=== PATIENT | male | born 1945 | race Caucasian/White ===

== ENCOUNTER 2018-05-01 08:14 | Day surgery (SDC) | payer MEDICARE ==
[2018-04-27 12:30] VITALS: BMI 28.7
[~2018-05-01 08:14] MED LIST: LACTATED RINGERS 1,000 ML IV SCH; LIDOCAINE 1% 20 ML VIAL (10MG/ML) FOR IV START INTRADERMA PRN
[2018-05-01 08:40] VITALS: RESP 18; TEMP 97.4
[2018-05-01] MEDS ORDERED: PROPOFOL 10 MG/ML 20 ML VIAL IV ONE (09:46)
[2018-05-01] MEDS ORDERED: fentaNYL (PF) 50 MCG/ML 2 ML AMP ONE (09:46)
[2018-05-01] MEDS ORDERED: LIDOCAINE 1% INJ 10MG/ML (20 ML MDV) ONE (09:46)
--- NOTE | 2018-05-01 10:21 | P.PCN ---
Date of Procedure: 05/01/18 Procedure(s) Performed: Procedure: Total colonoscopy. Preoperative diagnosis: Positive cologuard test and history of polyps. Postoperative diagnosis: #1 Sigmoid diverticulosis with no evidence of acute diverticulitis or strictures. #2 Low-grade internal hemorrhoids without bleeding at the time of the exam. #3 No polyps or tumors. Preparation: HalfLytely prep. Sedation: Was provided by anesthesia. Brief clinical history: The patient is a 72-year-old male with history of colon polyps. His last exam was in May 2014 where a tubular adenoma was removed from his rectum. The patient was recently found to have a positive cologuard test and is now referred for this evaluation to rule out neoplasia or other pathology. Procedure: With the patient on his left lateral decubitus position and after informed consent and adequate sedation, the perianal area was inspected and it did not show any fissures or fistulas. There were no masses felt on digital rectal examination. The Olympus CFH 190L video colonoscope was then inserted in the rectum in the usual fashion and advanced to the cecum. There were several diverticular orifices seen scattered in the sigmoid but I saw no evidence of acute diverticulitis or strictures. No polyps or tumors were seen. I retroflexed the endoscope in the rectum before the endoscope was withdrawn. Low-grade internal hemorrhoids were noted with no evidence of bleeding. The patient tolerated the procedure well. Plan: The patient was reassured. Discussed dietary measures and local care for hemorrhoids. He will follow-up with you as planned and I recommended repeat exam in 5 years.
[2018-05-01 10:33] VITALS: BP 127/70; PULSE 60
== END 2018-05-01 10:45 | disposition home or self-care (01) ==
LOC: ORWHC2ENDO 08:14
DX: Z12.11 Encounter for screening for malignant neoplasm of colon (principal); K57.30 Diverticulosis of large intestine without perforation or abscess without bleeding; K64.8 Other hemorrhoids; N40.0 Benign prostatic hyperplasia without lower urinary tract symptoms; J44.9 Chronic obstructive pulmonary disease, unspecified; Z86.010 Personal history of colon polyps; Z79.899 Other long term (current) drug therapy
CPT/HCPCS: J2001; J3010; J2704; G0105; 45378

== ENCOUNTER 2023-03-15 13:07 | Inpatient (IN) | payer MEDICARE ==
--- NOTE | 2023-03-15 13:20 | ED ---
General Adult HPI - General Source: patient, RN notes reviewed Mode of arrival: ambulatory Limitations: no limitations <Priyanka Watters - Last Filed: 03/15/23 13:18> <Richard Singer - Last Filed: 03/15/23 15:52> - General Chief complaint: Recheck/Abnormal Lab/Rx Stated complaint: rapid pulse Time Seen by Provider: 03/15/23 13:15 - History of Present Illness Initial comments: 77-year-old male presents to the emergency department for chief complaint of elevated heart rate. He states that he walked the mall today then when he went home he felt his heart racing a bit. He states that he took his heart rate at that time and it was elevated around 140. Denies chest pain, shortness of breath. He follows with Dr. Celestin. No history of afib. (Priyanka Watters) This is a 77-year-old male presents emergency department because when he got up this morning felt like his heart rate was fast they took his pulse and it was passively decided come to the emergency department. Patient states he has no history of a fast heart rate in the past. Patient denies any chest pain. Patient denies any shortness of breath or difficulty breathing. Patient denies any fever chills or cough. Patient denies any recent nausea vomiting diarrhea or abdominal pain. Patient states he hasn't been more fatigued lately or had any weakness. Patient denies lightheadedness or dizziness. (Richard Singer) - Related Data Home Medications Medication Instructions Recorded Confirmed Mometasone Furoate [Nasonex] 1 - 2 spray EA NOSTRIL DAILY 05/12/14 05/01/18 Montelukast [Singulair] 10 mg PO DAILY 05/12/14 05/01/18 Tamsulosin [Flomax] 0.4 mg PO DAILY 04/27/18 04/27/18 Allergies Allergy/AdvReac Type Severity Reaction Status Date / Time No Known Allergies Allergy Verified 03/15/23 13:16 Review of Systems ROS Other: All systems not noted in ROS Statement are negative. <Priyanka Watters - Last Filed: 03/15/23 13:18> ROS Other: All systems not noted in ROS Statement are negative. <Richard Singer - Last Filed: 03/15/23 15:52> ROS Statement: Those systems with pertinent positive or pertinent negative responses have been documented in the HPI. Past Medical History Past Medical History: Prostate Disorder Additional Past Medical History / Comment(s): positive cologard, hx. colon polyps History of Any Multi-Drug Resistant Organisms: None Reported Past Surgical History: Tonsillectomy Additional Past Surgical History / Comment(s): Cyst removed on right side of face (2007?), colonoscopies Past Anesthesia/Blood Transfusion Reactions: No Reported Reaction Past Psychological History: No Psychological Hx Reported Smoking Status: Never smoker Past Alcohol Use History: Rare Past Drug Use History: None Reported - Past Family History Mother Family Medical History: No Reported History <Priyanka Watters - Last Filed: 03/15/23 13:18> General Exam Limitations: no limitations <Priyanka Watters - Last Filed: 03/15/23 13:18> <Richard Singer - Last Filed: 03/15/23 15:52> - General Exam Comments Initial Comments: Visual Physical Exam Vital signs reviewed General: Well-appearing, nontoxic, no acute distress. Head: Normocephalic, atraumatic Eyes: PERRLA, EOMI ENT: Airway patent Chest: Nonlabored breathing Skin: No visual rash, normal skin tone Neuro: Alert and oriented 3 Musculoskeletal: No gross abnormalities (Priyanka Watters) GENERAL: Patient is well-developed and well-nourished. Patient is nontoxic and well- hydrated and is in no acute distress. ENT: Neck is soft and supple. No significant lymphadenopathy is noted. Oropharynx is clear. Moist mucous membranes. Neck has full range of motion without eliciting any pain. EYES: The sclera were anicteric and conjunctiva were pink and moist. Extraocular movements were intact and pupils were equal round and reactive to light. Eyelids were unremarkable. PULMONARY: Unlabored respirations. Good breath sounds bilaterally. No audible rales rho nchi or wheezing was noted. CARDIOVASCULAR: Patient is tachycardic at 140 beats a minute ABDOMEN: Soft and nontender with normal bowel sounds. SKIN: Skin is clear with no lesions or rashes and otherwise unremarkable. NEUROLOGIC: Patient is alert and oriented x3. Cranial nerves II through XII are grossly intact. Motor and sensory are also intact. Normal speech, volume and content. Symmetrical smile. MUSCULOSKELETAL: Normal extremities with adequate strength and full range of motion. No lower extremity swelling or edema. No calf tenderness. LYMPHATICS: No significant lymphadenopathy is noted PSYCHIATRIC: Normal psychiatric evaluation. (Richard Singer) Course Vital Signs 03/15/23 03/15/23 13:14 15:39 Temperature 98.5 F Pulse Rate 142 H 140 H Respiratory 18 18 Rate Blood Pressure 170/98 129/94 O2 Sat by Pulse 96 96 Oximetry Medical Decision Making <Priyanka Watters - Last Filed: 03/15/23 13:18> - Lab Data Result diagrams: 03/15/23 13:58 03/15/23 13:58 <Richard Singer - Last Filed: 03/15/23 15:52> - Medical Decision Making Quick note preformed by Priyanka Watters PA-C (Priyanka Watters) EKG is interpreted by myself. EKG shows atrial flutter at 140 beats a minute QRS is 91 Q-T intervals 218 QTC is 300. Patient's EKG shows no ST segment elevation or depression. Was pt. sent in by a medical professional or institution ([facility], QUALITY TECHNICIAN, urgent care, hospital, or longterm...) When possible be specific @ -No Did you speak to anyone other than the patient for history (EMS, parent, family, police, friend...)? What history was obtained from this source @ -No Did you review nursing and triage notes (agree or disagree)? Why? @ -I reviewed and agree with nursing and triage notes Were old charts reviewed (outside hosp., previous admission, EMS record, old EKG, old radiological studies, urgent care reports/EKG's, longterm records)? Report findings @ -No old charts were reviewed Differential Diagnosis (chest pain, altered mental status, abdominal pain women, abdominal pain men, vaginal bleeding, weakness, fever, dyspnea, syncope, headache, dizziness, GI bleed, back pain, seizure, CVA, palpatations, mental health, musculoskeletal)? @ -Differential Palpitations Ventricular arrhythmias, atrial arrhythmias, myocardial infarction, anemia, thyrotoxicosis, electrolyte imbalance, hypokalemia, pulmonary embolism, pulmonary disease, drugs, alcohol, anxiety, stress.... This is not meant to be an all-inclusive list. EKG interpreted by me (3pts min.). @ -As above X-rays interpreted by me (1pt min.). @ -Chest x-ray shows no acute abnormality CT interpreted by me (1pt min.). @ -None done U/S interpreted by me (1pt. min.). @ -None done What testing was considered but not performed or refused? (CT, X-rays, U/S, labs)? Why? @ -None What meds were considered but not given or refused? Why? @ -None Did you discuss the management of the patient with other professionals (professionals i.e. , PA, QUALITY TECHNICIAN, lab, RT, psych nurse, hospice social worker, asic verification engineer, teacher, air force senior officer, behavioral health case manager)? Give summary @ -With [facility] physician's they agreed to admit the patient admitted the patient I wrote admitting orders Was smoking cessation discussed for >3mins.? @ -No Was critical care preformed (if so, how long)? @ -35 minutes Were there social determinants of health that impacted care today? How? (Homelessness, low income, unemployed, alcoholism, drug addiction, transportation, low edu. Level, literacy, decrease access to med. care, snf, rehab)? @ -No Was there de-escalation of care discussed even if they declined (Discuss DNR or withdrawal of care, Hospice)? DNR status @ -No What co-morbidities impacted this encounter? (DM, HTN, Smoking, COPD, CAD, Cancer, CVA, ARF, Chemo, Hep., AIDS, mental health diagnosis, sleep apnea, morbid obesity)? @ -None Was patient admitted / discharged? Hospital course, mention meds given and route, prescriptions, significant lab abnormalities, going to OR and other pertinent info. @ -I spoke with [facility] physician's patient will be admitted to the hospital. Cardiology will be consulted. Patient's EKG indicated atrial flutter. Patient was placed on Cardizem and then heparin. Undiagnosed new problem with uncertain prognosis? @ -No Drug Therapy requiring intensive monitoring for toxicity (Heparin, Nitro, Insulin, Cardizem)? @ -No Were any procedures done? @ -No Diagnosis/symptom? @ -Atrial flutter with rapid ventricular response Acute, or Chronic, or Acute on Chronic? @ -Acute Uncomplicated (without systemic symptoms) or Complicated (systemic symptoms)? @ -Complicated Side effects of treatment? @ -No Exacerbation, Progression, or Severe Exacerbation? @ -No Poses a threat to life or bodily function? How? (Chest pain, [place], [place], pneumonia, PE, COPD, DKA, ARF, appy, cholecystitis, CVA, Diverticulitis, Homicidal, Suicidal, threat to staff... and all critical care pts) @ -Yes this could lead blood clots and possibly stroke (Richard Singer) - Lab Data Lab Results 03/15/23 03/15/23 03/15/23 Range/Units 13:58 13:58 13:58 WBC 9.7 (3.8-10.6) k/uL RBC 5.52 (4.30-5.90) m/uL Hgb 16.3 (13.0-17.5) gm/dL Hct 48.9 (39.0-53.0) % MCV 88.5 (80.0-100.0) fL MCH 29.5 (25.0-35.0) pg MCHC 33.3 (31.0-37.0) g/dL RDW 13.5 (11.5-15.5) % Plt Count 180 (150-450) k/uL MPV 7.9 Neutrophils % 74 % Lymphocytes % 16 % Monocytes % 6 % Eosinophils % 2 % Basophils % 1 % Neutrophils # 7.2 (1.3-7.7) k/uL Lymphocytes # 1.5 (1.0-4.8) k/uL Monocytes # 0.5 (0-1.0) k/uL Eosinophils # 0.2 (0-0.7) k/uL Basophils # 0.1 (0-0.2) k/uL PT 11.3 (10.0-12.5) sec INR 1.0 (<1.2) APTT 22.9 (22.0-30.0) sec Sodium 137 (137-145) mmol/L Potassium 4.1 (3.5-5.1) mmol/L Chloride 104 (98-107) mmol/L Carbon Dioxide 21 L (22-30) mmol/L Anion Gap 12 mmol/L BUN 19 (9-20) mg/dL Creatinine 0.90 (0.66-1.25) mg/dL Est GFR (CKD-EPI)AfAm >90 (>60 ml/min/1.73 sqM) Est GFR (CKD-EPI)NonAf 81 (>60 ml/min/1.73 sqM) Glucose 297 H (74-99) mg/dL Calcium 9.2 (8.4-10.2) mg/dL Magnesium 2.0 (1.6-2.3) mg/dL Total Bilirubin 0.6 (0.2-1.3) mg/dL AST 38 (17-59) U/L ALT 36 (4-49) U/L Alkaline Phosphatase 71 (38-126) U/L Troponin I (0.000-0.034) ng/mL Total Protein 7.4 (6.3-8.2) g/dL Albumin 4.3 (3.5-5.0) g/dL TSH 5.020 H (0.465-4.680) mIU/L 03/15/23 Range/Units 13:58 WBC (3.8-10.6) k/uL RBC (4.30-5.90) m/uL Hgb (13.0-17.5) gm/dL Hct (39.0-53.0) % MCV (80.0-100.0) fL MCH (25.0-35.0) pg MCHC (31.0-37.0) g/dL RDW (11.5-15.5) % Plt Count (150-450) k/uL MPV Neutrophils % % Lymphocytes % % Monocytes % % Eosinophils % % Basophils % % Neutrophils # (1.3-7.7) k/uL Lymphocytes # (1.0-4.8) k/uL Monocytes # (0-1.0) k/uL Eosinophils # (0-0.7) k/uL Basophils # (0-0.2) k/uL PT (10.0-12.5) sec INR (<1.2) APTT (22.0-30.0) sec Sodium (137-145) mmol/L Potassium (3.5-5.1) mmol/L Chloride (98-107) mmol/L Carbon Dioxide (22-30) mmol/L Anion Gap mmol/L BUN (9-20) mg/dL Creatinine (0.66-1.25) mg/dL Est GFR (CKD-EPI)AfAm (>60 ml/min/1.73 sqM) Est GFR (CKD-EPI)NonAf (>60 ml/min/1.73 sqM) Glucose (74-99) mg/dL Calcium (8.4-10.2) mg/dL Magnesium (1.6-2.3) mg/dL Total Bilirubin (0.2-1.3) mg/dL AST (17-59) U/L ALT (4-49) U/L Alkaline Phosphatase (38-126) U/L Troponin I <0.012 (0.000-0.034) ng/mL Total Protein (6.3-8.2) g/dL Albumin (3.5-5.0) g/dL TSH (0.465-4.680) mIU/L Critical Care Time Critical Care Time: Yes Total Critical Care Time: 35 <Richard Singer - Last Filed: 03/15/23 15:52> Disposition <Priyanka Watters - Last Filed: 03/15/23 13:18> Time of Disposition: 15:52 <Richard Singer - Last Filed: 03/15/23 15:52> Clinical Impression: Atrial flutter with rapid ventricular response Disposition: ADMITTED IP TO THIS HOSP Referrals: Pawel Kevin, PAC [Primary Care Provider] - 1-2 days
[2023-03-15 14:12] LABS: Basophils # (A) 0.1 k/uL (0-0.2); Basophils % (A) 1 %; Eosinophils # (A) 0.2 k/uL (0-0.7); Eosinophils % (A) 2 %; HCT 48.9 % (39.0-53.0); HGB 16.3 gm/dL (13.0-17.5); Lymphocytes # (A) 1.5 k/uL (1.0-4.8); Lymphocytes % (A) 16 %; MCH 29.5 pg (25.0-35.0); MCHC 33.3 g/dL (31.0-37.0); MCV 88.5 fL (80.0-100.0); Mean Platelet Volume 7.9; Monocytes # (A) 0.5 k/uL (0-1.0); Monocytes % (A) 6 %; Neutrophils # (A) 7.2 k/uL (1.3-7.7); Neutrophils % (A) 74 %; Platelet Count 180 k/uL (150-450); RBC 5.52 m/uL (4.30-5.90); RDW 13.5 % (11.5-15.5); WBC 9.7 k/uL (3.8-10.6)
[2023-03-15 14:25] LABS: ALT 36 U/L (4-49); AST 38 U/L (17-59); African American GFR (CKD) >90 (>60 ml/min/1.73 sqM); Albumin 4.3 g/dL (3.5-5.0); Alkaline Phosphatase 71 U/L (38-126); Anion Gap 12 mmol/L; Blood Urea Nitrogen 19 mg/dL (9-20); Calcium 9.2 mg/dL (8.4-10.2); Carbon Dioxide 21 mmol/L (22-30); Chloride 104 mmol/L (98-107); Glucose 297 mg/dL (74-99); Non-African American GFR(CKD) 81 (>60 ml/min/1.73 sqM); Potassium 4.1 mmol/L (3.5-5.1); Sodium 137 mmol/L (137-145); Total Bilirubin 0.6 mg/dL (0.2-1.3); Total Protein 7.4 g/dL (6.3-8.2)
[2023-03-15 14:32] LABS: Partial Thromboplastin Time 22.9 sec (22.0-30.0); Prothrombin Time 11.3 sec (10.0-12.5)
--- NOTE | 2023-03-15 14:49 | XR ---
EXAMINATION TYPE: XR chest 2V DATE OF EXAM: 03/15/2023 COMPARISON: NONE HISTORY: Shortness of breath TECHNIQUE: Frontal and lateral views of the chest are obtained. FINDINGS: Scattered senescent parenchymal changes noted. Hyperinflation compatible with COPD. No evidence for infiltrate. No evidence for atelectasis. Heart size is stable. Mediastinal structures are stable and grossly unremarkable. No evidence for hilar prominence. Degenerative changes dorsal spine. IMPRESSION: 1. No evidence for acute pulmonary disease.
[2023-03-15] MEDS ORDERED: HEPARIN SODIUM 1,000 UN/ML (10ML VL) IV ONE (15:43)
[2023-03-15] MEDS ORDERED: DILTIAZEM DRIP BOLUS FROM BAG 1 MG SOLN IV ONE (15:43)
[2023-03-15] MEDS ORDERED: HEPARIN SOD,PORK IN 0.45% NACL 25,000 UNIT in 0.45% NACL 1 250ML.BAG IV SCH (15:45)
[2023-03-15] MEDS ORDERED: NITROGLYCERIN SL TABS 0.4 MG TAB SUBLINGUAL PRN (15:52)
[2023-03-15] MEDS: DILTIAZEM 125 MG in SODIUM CHLORIDE 0.9% 100 ML IV SCH (16:10)
--- NOTE | 2023-03-15 16:56 | P.HPIM ---
History of Present Illness H&P Date: 03/15/23 Patient is a 77-year-old male with history of asthma, BPH presenting with elevated heart rate. Patient was mallwalking earlier during the day and decided to check his heart rate once he got home, and was found to be elevated. He remains in asymptomatic. He denies any chest pain, shortness of breath, palpitations, lightheadedness, abdominal pain, urinary or bowel complaints. He denies any fevers or chills. Denies any recent sick contacts. He denies any smoking or alcohol use,or illicit drug use. In the ED, temperature was 98.5, pulse 142, blood pressure 170/98, 96% on room air. WBC 9.7, hemoglobin 16.3, bicarb 21, creatinine 0.9, potassium 4.1, magnesium 2, glucose 297, trop neg, TSH 5.02. Chest x-ray independently interpreted, shows no acute process. EKG reported as atrial flutter. Patient being admitted for new onset atrial flutter. On Cardizem drip and heparin drip. Cardiology consulted. Pertinent positives and negatives as discussed in HPI, a complete review of systems was performed and all other systems are negative. Patient seen and examined at bedside. Vital signs reviewed General: nontoxic, no distress, appears at stated age Derm: warm, dry Head: atraumatic, normocephalic, symmetric Eyes: EOMI, no lid lag, anicteric sclera, pupils equal round reactive to light ENT: Nose and ears atraumatic Neck: No thyromegaly, supple Mouth: no lip lesion, mucus membranes moist Cardiovascular: S1S2 reg, no murmur, no edema Lungs: clear to auscultation bilateral, no rhonchi, no rales, no wheeze, no accessory muscle use Abdominal: soft, nontender to palpation, no guarding, no appreciable organomegaly Ext: no gross muscle atrophy, muscle strength muscle strength 5 out of 5 in all 4 extremities, no contractures Neuro: CN II-XII grossly intact Psych: Alert, oriented, appropriate affect Assessment/Plan: Active: New-onset atrial flutter with RVR -Continue Cardizem 5 mg per hour -Continue IV heparin drip, monitor daily CBC, APTT -Telemetry -Echo ordered -Cardiology consulted -TSH slightly elevated, repeat in 4-6 weeks, free T4 pending Hyperglycemia -A1c pending Rhinitis BPH HLD -home meds reviewed and reconciled The patient is admitted with an anticipated greater than 2 midnight stay as inpatient status for evaluation of new onset atrial flutter. Surrogate decision-maker: CODE STATUS: Full code DVT prophylaxis: Heparin drip Anticipated discharge date: Pending clinical course Anticipated discharge place: Pending clinical course A total of 55 minutes was spent on the care of this complex patient more than 50% of the time was spent in counseling and care coordination. Past Medical History Past Medical History: Prostate Disorder Additional Past Medical History / Comment(s): positive cologard, hx. colon poly ps History of Any Multi-Drug Resistant Organisms: None Reported Past Surgical History: Tonsillectomy Additional Past Surgical History / Comment(s): Cyst removed on right side of face (2007?), colonoscopies Past Anesthesia/Blood Transfusion Reactions: No Reported Reaction Past Psychological History: No Psychological Hx Reported Smoking Status: Never smoker Past Alcohol Use History: Rare Past Drug Use History: None Reported - Past Family History Mother Family Medical History: No Reported History Medications and Allergies Home Medications Medication Instructions Recorded Confirmed Type Mometasone Furoate [Nasonex] 1 - 2 spr EA NOSTRIL DAILY 05/12/14 03/15/23 History Montelukast [Singulair] 10 mg PO DAILY 05/12/14 03/15/23 History Tamsulosin [Flomax] 0.4 mg PO BID 04/27/18 03/15/23 History Atorvastatin [Lipitor] 20 mg PO DAILY 03/15/23 03/15/23 History Finasteride [Proscar] 5 mg PO DAILY 03/15/23 03/15/23 History Vitamin D3(Unknown Dose) 1 tab PO DAILY 03/15/23 03/15/23 History Allergies Allergy/AdvReac Type Severity Reaction Status Date / Time No Known Allergies Allergy Verified 03/15/23 16:00 Physical Exam Vitals: Vital Signs Temp Pulse Resp BP Pulse Ox 03/15/23 16:00 141 H 18 149/93 95 03/15/23 15:39 140 H 18 129/94 96 03/15/23 13:14 98.5 F 142 H 18 170/98 96 Intake and Output 03/15/23 03/15/23 03/15/23 06:59 14:59 22:59 Other: Weight 99.79 kg Results CBC & Chem 7: 03/15/23 13:58 03/15/23 13:58 Labs: Abnormal Lab Results - Last 24 Hours (Table) 03/15/23 Range/Units 13:58 Carbon Dioxide 21 L (22-30) mmol/L Glucose 297 H (74-99) mg/dL TSH 5.020 H (0.465-4.680) mIU/L
[2023-03-15] MEDS: TAMSULOSIN 0.4 MG CAP.ER.24H PO SCH (20:37)
[2023-03-16] MEDS: DILTIAZEM 125 MG in SODIUM CHLORIDE 0.9% 100 ML IV SCH (05:18)
[2023-03-16] MEDS ORDERED: DEXTROSE 50% SYRINGE 50 ML IVP PRN ×2 (07:56)
[2023-03-16] MEDS: MONTELUKAST 10 MG TAB PO SCH (08:06)
[2023-03-16] MEDS: FINASTERIDE 5 MG TAB PO SCH (08:06)
[2023-03-16] MEDS: ATORVASTATIN 20 MG TAB PO SCH (08:06)
[2023-03-16] MEDS: TAMSULOSIN 0.4 MG CAP.ER.24H PO SCH ×2 (08:06→20:48)
[2023-03-16] MEDS: METOPROLOL TARTRATE 25 MG TAB PO SCH ×2 (08:07→20:48)
[2023-03-16 08:46] LABS: Basophils # (A) 0.1 k/uL (0-0.2); Basophils % (A) 1 %; Eosinophils # (A) 0.2 k/uL (0-0.7); Eosinophils % (A) 2 %; HCT 49.1 % (39.0-53.0); HGB 16.2 gm/dL (13.0-17.5); Lymphocytes # (A) 1.5 k/uL (1.0-4.8); Lymphocytes % (A) 14 %; MCH 29.3 pg (25.0-35.0); MCV 88.7 fL (80.0-100.0); Mean Platelet Volume 7.6; Monocytes # (A) 0.6 k/uL (0-1.0); Monocytes % (A) 6 %; Neutrophils # (A) 8.2 k/uL (1.3-7.7); Neutrophils % (A) 77 %; Platelet Count 195 k/uL (150-450); RBC 5.54 m/uL (4.30-5.90); RDW 13.7 % (11.5-15.5); WBC 10.7 k/uL (3.8-10.6)
[2023-03-16] MEDS ORDERED: ASPIRIN 325 MG TAB PO SCH (09:00)
[2023-03-16 09:07] LABS: African American GFR (CKD) >90 (>60 ml/min/1.73 sqM); Anion Gap 12 mmol/L; Blood Urea Nitrogen 17 mg/dL (9-20); Carbon Dioxide 23 mmol/L (22-30); Chloride 102 mmol/L (98-107); Glucose 291 mg/dL (74-99); Magnesium 2.1 mg/dL (1.6-2.3); Non-African American GFR(CKD) 86 (>60 ml/min/1.73 sqM); Potassium 4.6 mmol/L (3.5-5.1); Sodium 137 mmol/L (137-145)
[2023-03-16] MEDS: APIXABAN 5 MG TAB PO SCH ×2 (10:15→20:48)
--- NOTE | 2023-03-16 11:30 | P.CRDCN ---
History of Present Illness History of present illness: HISTORY OF PRESENT ILLNESS: This is a 77-year-old male with a past medical history significant for hyperlipidemia, valvular heart disease, and former nicotine dependence. Patient follows in the office with Dr. Celestin. We have been asked to see the patient in consultation for atrial flutter. Patient examined at the bedside. The patient states he was checking his heart rate yesterday and noticed it to be fast. He denies any palpations, chest pain or pressure, or shortness of breath. Denies history of CVA/TIA. The patient was found to be in a flutter with RVR. He was started on IV heparin and IV Cardizem. At the time of examination he remains in atrial flutter with controlled ventricular rate. * EKG reveals atrial flutter with 2:1 conduction * Chest xray negative for acute process * Laboratory data: Troponin negative 3. TSH 5.020. Free T4 1 0.25. Hemoglo bin A1c 11.1. * Current home cardiac medications include Lipitor 20 mg daily * Most recent echocardiogram obtained in April 2022 revealed normal ejection fraction, [id number] MR * Patient underwent Lexiscan stress test in April 2022 which was negative for ischemia REVIEW OF SYSTEMS: At the time of my exam: CONSTITUTIONAL: Denies fever or chills. HEENT: Denies blurred vision, vision changes, or eye pain. Denies hemoptysis CARDIOVASCULAR: Denies chest pain. Denies orthopnea. Denies PND. Denies palpitations RESPIRATORY: Denies shortness of breath. GASTROINTESTINAL: Denies abdominal pain. Denies nausea or vomiting. HEMATOLOGIC: Denies bleeding disorders. GENITOURINARY: Denies any blood in urine. SKIN: Denies pruitis. Denies rash. PHYSICAL EXAM: VITAL SIGNS: Reviewed. GENERAL: Well-developed in no acute distress. HEENT: Head is normocephalic. Pupils are equal, round. Sclerae anicteric. Mucous membranes of the mouth are moist. Neck supple. No JVD or thyromegaly LUNGS: Respirations even and unlabored. Lungs essentially clear to auscultation bilaterally. HEART: Regular rate and rhythm. S1 and S2 heard. Systolic murmur noted ABDOMEN: Soft. Nondistended. Nontender. EXTREMITIES: Normal range of motion. No clubbing or cyanosis. Peripheral pulses intact. No lower extremity edema NEUROLOGIC: Awake and alert. Oriented x 3. ASSESSMENT: New onset typical atrial flutter with RVR New-onset diabetes, hemoglobin A1c 11.1% Valvular heart disease Hyperlipidemia Former nicotine dependence PLAN: Obtain 2-D echo to assess cardiac structure and function Discontinue aspirin Begin metoprolol tartrate 25 mg twice a day Discontinue IV heparin. Begin Eliquis 5mg twice a day Discontinue IV Cardizem Patient was given breakfast this morning. We will plan for NARESH cardioversion this afternoon with Dr. Celestin Further recommendations pending patient's course Nurse practitioner note has been reviewed by physician. Signing provider agrees with the documented findings, assessment, and plan of care. Past Medical History Past Medical History: Hyperlipidemia, Prostate Disorder Additional Past Medical History / Comment(s): positive cologard about 2 years ago, hx. colon polyps History of Any Multi-Drug Resistant Organisms: None Reported Past Surgical History: Tonsillectomy Additional Past Surgical History / Comment(s): Cyst removed on right side of face (2007?), colonoscopies Past Anesthesia/Blood Transfusion Reactions: No Reported Reaction Past Psychological History: No Psychological Hx Reported Smoking Status: Former smoker Past Alcohol Use History: Rare Additional Past Alcohol Use History / Comment(s): Quit smoking at 23 years old Past Drug Use History: None Reported - Past Family History Mother Family Medical History: No Reported History Additional Family Medical History / Comment(s): Heart disease Father Additional Family Medical History / Comment(s): Heart disease Medications and Allergies Home Medications Medication Instructions Recorded Confirmed Type Mometasone Furoate [Nasonex] 1 - 2 spr EA NOSTRIL DAILY 05/12/14 03/15/23 History Montelukast [Singulair] 10 mg PO DAILY 05/12/14 03/15/23 History Tamsulosin [Flomax] 0.4 mg PO BID 04/27/18 03/15/23 History Atorvastatin [Lipitor] 20 mg PO DAILY 03/15/23 03/15/23 History Finasteride [Proscar] 5 mg PO DAILY 03/15/23 03/15/23 History Vitamin D3(Unknown Dose) 1 tab PO DAILY 03/15/23 03/15/23 History Allergies Allergy/AdvReac Type Severity Reaction Status Date / Time No Known Allergies Allergy Verified 03/15/23 16:00 Physical Exam Vitals: Vital Signs Temp Pulse Pulse Resp BP BP Pulse Ox 03/16/23 04:00 98.5 F 110 H 17 133/78 94 L 03/16/23 02:00 71 17 03/16/23 00:00 98.4 F 102 H 17 148/74 96 03/15/23 20:00 98.5 F 89 18 150/69 97 03/15/23 18:50 98 F 80 16 153/98 97 03/15/23 17:50 144 H 18 132/102 99 03/15/23 16:56 142 H 18 151/99 96 03/15/23 16:00 141 H 18 149/93 95 03/15/23 15:39 140 H 18 129/94 96 03/15/23 13:14 98.5 F 142 H 18 170/98 96 Intake and Output 03/15/23 03/16/23 03/16/23 22:59 06:59 14:59 Intake Total 10.417 219.667 Output Total 400 Balance 10.417 -180.333 Intake: Intake, IV Titration 10.417 219.667 Amount Diltiazem 125 mg In 10.417 110.5 Sodium Chloride 0.9% 100 ml @ 5 MG/HR 5 mls/hr IV .Q24H [facility] Rx#:[id number] Heparin Sod,Pork in 0.45% 109.167 NaCl 25,000 unit In 0.45 % NaCl 1 250ml.bag @ 10. 021 UNITS/KG/HR 10 mls/hr IV .Q24H [facility] Rx#: [id number] Output: Urine 400 Other: Voiding Method Toilet Toilet Weight 99.79 kg Results 03/16/23 08:21 03/16/23 08:21 Cardiac Enzymes 03/15/23 03/15/23 03/15/23 Range/Units 13:58 13:58 16:43 AST 38 (17-59) U/L Troponin I <0.012 <0.012 (0.000-0.034) ng/mL 03/15/23 Range/Units 19:53 AST (17-59) U/L Troponin I <0.012 (0.000-0.034) ng/mL Coagulation 03/15/23 03/15/23 Range/Units 13:58 23:47 PT 11.3 (10.0-12.5) sec APTT 22.9 28.8 (22.0-30.0) sec CBC 03/15/23 Range/Units 13:58 WBC 9.7 (3.8-10.6) k/uL RBC 5.52 (4.30-5.90) m/uL Hgb 16.3 (13.0-17.5) gm/dL Hct 48.9 (39.0-53.0) % Plt Count 180 (150-450) k/uL Comprehensive Metabolic Panel 03/15/23 Range/Units 13:58 Sodium 137 (137-145) mmol/L Potassium 4.1 (3.5-5.1) mmol/L Chloride 104 (98-107) mmol/L Carbon Dioxide 21 L (22-30) mmol/L BUN 19 (9-20) mg/dL Creatinine 0.90 (0.66-1.25) mg/dL Glucose 297 H (74-99) mg/dL Calcium 9.2 (8.4-10.2) mg/dL AST 38 (17-59) U/L ALT 36 (4-49) U/L Alkaline Phosphatase 71 (38-126) U/L Total Protein 7.4 (6.3-8.2) g/dL Albumin 4.3 (3.5-5.0) g/dL Current Medications Generic Name Dose Route Start Last Admin Trade Name Freq PRN Reason Stop Dose Admin Aspirin 325 mg 03/16/23 09:00 Aspirin 325 Mg Tab PO DAILY [facility] Atorvastatin Calcium 20 mg 03/16/23 09:00 Atorvastatin 20 Mg Tab PO DAILY [facility] Finasteride 5 mg 03/16/23 09:00 Finasteride 5 Mg Tab PO DAILY [facility] Diltiazem HCl 125 mg/ Sodium 125 mls @ 5 mls/hr 03/15/23 15:45 03/16/23 05:18 Chloride IV 10 mg/hr .Q24H [facility] 10 mls/hr Administration 5 MG/HR Heparin Sodium/Sodium Chloride 250 mls @ 10 mls/hr 03/15/23 15:45 03/16/23 03:03 25,000 unit/ Sodium Chloride IV 13.021 units/kg/hr .Q24H [facility] 12.994 mls/hr Titration Protocol 10.021 UNITS/KG/HR Montelukast Sodium 10 mg 03/16/23 09:00 Montelukast 10 Mg Tab PO DAILY [facility] Nitroglycerin 0.4 mg 03/15/23 15:52 Nitroglycerin Sl Tabs 0.4 Mg Tab SUBLINGUAL Q5M PRN Chest Pain Tamsulosin HCl 0.4 mg 03/15/23 21:00 03/15/23 20:37 Tamsulosin 0.4 Mg Cap.Er.24h PO 0.4 mg BID [facility] Administration Intake and Output 03/15/23 03/16/23 03/16/23 22:59 06:59 14:59 Intake Total 10.417 219.667 Output Total 400 Balance 10.417 -180.333 Intake: Intake, IV Titration 10.417 219.667 Amount Diltiazem 125 mg In 10.417 110.5 Sodium Chloride 0.9% 100 ml @ 5 MG/HR 5 mls/hr IV .Q24H [facility] Rx#:[id number] Heparin Sod,Pork in 0.45% 109.167 NaCl 25,000 unit In 0.45 % NaCl 1 250ml.bag @ 10. 021 UNITS/KG/HR 10 mls/hr IV .Q24H [facility] Rx#: [id number] Output: Urine 400 Other: Voiding Method Toilet Toilet Weight 99.79 kg 03/15/23 13:58 03/15/23 13:58
[2023-03-16 11:40] LABS: Glucose,Whole Blood 241 mg/dL (70-110)
[2023-03-16] MEDS: DAPAGLIFLOZIN PROPANEDIOL 10 MG TABLET PO SCH (12:41)
[2023-03-16] MEDS: GLIMEPIRIDE 1 MG TAB PO SCH (12:41)
[2023-03-16] MEDS: INSULIN ASPART (NovoLOG) 100 UNIT/ML VIAL SQ SCH ×3 (12:41→20:35)
--- NOTE | 2023-03-16 14:03 | P.PN ---
Subjective Progress Note Date: 03/16/23 Hospital Course: 77-year-old male with history of asthma, BPH presenting with elevated heart rate. In the ED, temperature was 98.5, pulse 142, blood pressure 170/98, 96% on room air. WBC 9.7, hemoglobin 16.3, bicarb 21, creatinine 0.9, potassium 4.1, magnesium 2, glucose 297, trop neg, TSH 5.02. Chest x-ray independently interpreted, shows no acute process. EKG reported as atrial flutter. Patient being admitted for new onset atrial flutter. On Cardizem drip and heparin drip. Cardiology consulted. Transition to oral Eliquis, and metoprolol. Also found to be new onset type 2 diabetes with A1c of 11.1. Started on oral antidiabetic medications. Patient pending NARESH with cardioversion. Subjective: Seen And examined at bedside. No acute events overnight. Denies any new complaints. Pertinent positives and negatives as discussed above, a complete review of systems was performed and all other systems are negative. Vitals Signs Reviewed. General: nontoxic, no distress, appears at stated age Derm: warm, dry Head: atraumatic, normocephalic, symmetric Eyes: EOMI, no lid lag, anicteric sclera Mouth: no lip lesion, mucus membranes moist Cardiovascular: S1S2 reg, no murmur Lungs: CTA bilateral, no rhonchi, no rales , no accessory muscle use Abdominal: soft, nontender to palpation, no guarding, no appreciable organomegaly Ext: no gross muscle atrophy, no edema, no contractures Neuro: CN II-XI grossly intact, no focal neuro deficits Psych: Alert, oriented, appropriate affect Data Reviewed Today: Pertinent Labs: WBC 10.7, hemoglobin 16.2, APTT 39.1, potassium 4.6, bicarb 23, creatinine 0.79, glucose range between 241-297, A1c 11.1, troponin negative 3, magnesium 2.1 Imaging: No new imaging Assessment and Plan: Patient needs close monitoring, at increased risk for decompensation. New-onset atrial flutter with RVR -Cardiology note reviewed, patient started on Eliquis 5 mg twice a day, pending NARESH with cardioversion tomorrow -Started on metoprolol tartrate 25 mg twice a day -Cardizem drip and heparin drip discontinued -Continue to Telemetry -Echo ordered -TSH slightly elevated, repeat in 4-6 weeks, free T4 pending New-onset type 2 diabetes with hyperglycemia, A1c 11.1 -Started on farxiga 10 milligrams daily, glimepiride 1 mg daily -We will add metformin at discharge -Also on sliding scale insulin, monitor for hypoglycemia Rhinitis BPH HLD -home meds reviewed and reconciled DVT ppx: Eliquis Code status: Full code Anticipated discharge place: Home Anticipated discharge time: pending clinical course Objective - Vital Signs Vital signs: Vital Signs Temp 98.5 F 03/16/23 04:00 Pulse 78 03/16/23 11:42 Resp 16 03/16/23 11:42 BP 113/77 03/16/23 11:42 Pulse Ox 98 03/16/23 11:42 FiO2 Intake & Output 03/15/23 03/16/23 03/16/23 18:59 06:59 18:59 Intake Total 10.417 219.667 508.333 Output Total 400 Balance 10.417 -180.333 508.333 Weight 99.79 kg Intake: Intake, IV Titration 10.417 219.667 28.333 Amount Diltiazem 125 mg In 10.417 110.5 28.333 Sodium Chloride 0.9% 100 ml @ 5 MG/HR 5 mls/hr IV .Q24H [facility] Rx#:[id number] Heparin Sod,Pork in 0.45% 109.167 NaCl 25,000 unit In 0.45 % NaCl 1 250ml.bag @ 10. 021 UNITS/KG/HR 10 mls/hr IV .Q24H [facility] Rx#: [id number] Oral 480 Output: Urine 400 Other: Voiding Method Toilet - Labs CBC & Chem 7: 03/16/23 08:21 03/16/23 08:21 Labs: Abnormal Lab Results - Last 24 Hours (Table) 03/15/23 03/15/23 03/16/23 Range/Units 13:58 16:14 08:21 WBC (3.8-10.6) k/uL Neutrophils # (1.3-7.7) k/uL APTT (22.0-30.0) sec Carbon Dioxide 21 L (22-30) mmol/L Glucose 297 H 291 H (74-99) mg/dL POC Glucose (mg/dL) (70-110) mg/dL Hemoglobin A1c 11.1 H (<=6.0) % TSH 5.020 H (0.465-4.680) mIU/L 03/16/23 03/16/23 03/16/23 Range/Units 08:21 08:21 11:38 WBC 10.7 H (3.8-10.6) k/uL Neutrophils # 8.2 H (1.3-7.7) k/uL APTT 39.1 H (22.0-30.0) sec Carbon Dioxide (22-30) mmol/L Glucose (74-99) mg/dL POC Glucose (mg/dL) 241 H (70-110) mg/dL Hemoglobin A1c (<=6.0) % TSH (0.465-4.680) mIU/L
[2023-03-16 14:18] VITALS: BMI 31.5
[2023-03-16 15:33] LABS: Chol/HDL Ratio 3.24 Ratio; LDL Cholesterol,Calculated 65.3 mg/dL (0.0-131.0)
[2023-03-16 16:55] LABS: Glucose,Whole Blood 156 mg/dL (70-110)
[2023-03-16 20:25] LABS: Glucose,Whole Blood 147 mg/dL (70-110)
[2023-03-17 06:02] LABS: Glucose,Whole Blood 149 mg/dL (70-110)
[2023-03-17] MEDS: INSULIN ASPART (NovoLOG) 100 UNIT/ML VIAL SQ SCH ×2 (06:05→11:45)
[2023-03-17] MEDS: METOPROLOL TARTRATE 25 MG TAB PO SCH (06:14)
[2023-03-17] MEDS ORDERED: LACTATED RINGERS 1,000 ML IV ONE (07:19)
[2023-03-17] MEDS ORDERED: LIDOCAINE 1% INJ 10MG/ML (20 ML MDV) ONE (07:22)
[2023-03-17] MEDS ORDERED: PROPOFOL 10 MG/ML 20 ML VIAL IV ONE (07:22)
--- NOTE | 2023-03-17 07:48 | P.PCN ---
Date of Procedure: 03/17/23 Operative Findings: TRANSESOPHAGEAL ECHOCARDIOGRAM RISK MANAGEMENT SPECIALIST: DARRELL ARREDONDO MD, RPVI INDICATION: Rule out intracardiac thrombus before cardioversion SEDATION: Conscious sedation COMPLICATION: None PROCEDURE DESCRIPTION: After obtaining an informed consent, the patient was brought to recovery room. Pulse oximetry and heart monitors were attached to the patient. The patient throat was sprayed using lidocaine. The patient was turned into left lateral position. After that a bite guard was placed. After an appropriate sedation was initiated, the transesophageal echocardiogram was advanced through a bite guard into the mid esophagus. A 2-D echocardiogram images, color Doppler images, continuous wave images, pulse-wave images, of various cardiac structure were performed. After that the transesophageal echocardiogram probe was advanced into the stomach and fixed to obtain transgastric view was. The probe was brought into the mid esophagus. Inter-atrial septum was interrogated using 2D images, color Doppler images. After that transesophageal echocardiogram was withdrawn out and upon withdrawing the descending thoracic aorta all the way up to the arch was evaluated. CONCLUSION: 1. No evidence of left atrial appendage or thrombus. No evidence of intracardiac thrombus 2. Severely impaired LV function with EF around 20% 3. Aortic sclerosis with no stenosis or insufficiency 4. Mitral annular calcifications
--- NOTE | 2023-03-17 07:48 | P.PCN ---
Date of Procedure: 03/17/23 Operative Findings: Cardioversion Report Performing physician Jacob Celestin M.D. Procedure performed Successful cardioversion of atrial fibrillation to normal sinus mechanism using 200 J at first attempt Indication Symptomatic atrial fibrillation Complication None Level of sedation The procedure was performed under deep sedation using propofol with TICKET TAKER FERRYBOAT in the room Procedure description After obtaining an informed consent the patient was brought to the recovery room. Sedation was introduced using propofol with TICKET TAKER FERRYBOAT in the room. Subsequently the patient cardioverted from atrial fibrillation to normal sinus mechanism using 200 J and first attempt Conclusion Successful cardioversion of atrial fibrillation to normal sinus mechanism using 200 J Postprocedure management Continue the current medical regimen Continue oral anticoagulation Follow-up with the patient
[2023-03-17 09:37] LABS: Glucose,Whole Blood 167 mg/dL (70-110)
[2023-03-17] MEDS: APIXABAN 5 MG TAB PO SCH (09:42)
[2023-03-17] MEDS: FINASTERIDE 5 MG TAB PO SCH (09:42)
[2023-03-17] MEDS: ATORVASTATIN 20 MG TAB PO SCH (09:42)
[2023-03-17] MEDS: TAMSULOSIN 0.4 MG CAP.ER.24H PO SCH (09:42)
[2023-03-17] MEDS: MONTELUKAST 10 MG TAB PO SCH (09:42)
[2023-03-17] MEDS: DAPAGLIFLOZIN PROPANEDIOL 10 MG TABLET PO SCH (09:42)
[2023-03-17 09:43] VITALS: RESP 18; TEMP 97.8
[2023-03-17] MEDS: GLIMEPIRIDE 1 MG TAB PO SCH (09:43)
--- NOTE | 2023-03-17 10:00 | CA ---
Transthoracic Echo Report Name: Yovani Tiwari Age: 77 Gender: M : 1945 Exam Date: 03/16/2023 11:00 Exam Location: [facility] Ht (in): 70 Wt (lb): 220 Ordering Physician: Elle Bailey Attending/Referring Phys: [id number], Lynn Grommet Worker Fermín Long Procedure CPT: Indications: LV function Cardiac Hx: Technical Quality: Technically difficult study Contrast 1: Definity Total Dose (mL): 2 Contrast 2: Total Dose (mL): MEASUREMENTS (Male / Female) Normal Values 2D ECHO LV Diastolic Diameter PLAX 4.9 cm 4.2 - 5.9 / 3.9 - 5.3 cm LV Systolic Diameter PLAX 3.8 cm IVS Diastolic Thickness 1.1 cm 0.6 - 1.0 / 0.6 - 0.9 cm LVPW Diastolic Thickness 1.2 cm 0.6 - 1.0 / 0.6 - 0.9 cm LV Relative Wall Thickness 0.5 RV Internal Dim ED PLAX 2.7 cm LVOT Diameter 2.0 cm Aortic Root Diameter 2.7 cm LA Systolic Diameter LX 2.4 cm 3.0 - 4.0 / 2.7 - 3.8 cm LV Diastolic Volume MOD 4C 72.4 cm??? LV Systolic Volume MOD 4C 36.4 cm??? LV Ejection Fraction MOD 4C 49.7 % LV Cardiac Index MOD 4C 1423.7 cm???/min???m??? LV Diastolic Length 4C 6.7 cm LV Systolic Length 4C 5.4 cm LA Volume 43.1 cm??? 18 - 58 / 22 - 52 cm??? LA Volume Index 19.2 cm???/m??? 16 - 28 cm???/m??? Ascending Aorta Diameter 3.1 cm DOPPLER AV Peak Velocity 178.8 cm/s AV Peak Gradient 12.8 mmHg LVOT Peak Velocity 94.0 cm/s LVOT Peak Gradient 3.5 mmHg LVOT Velocity Time Integral 17.7 cm LVOT Stroke Volume 56.8 cm??? LVOT Stroke Volume Index 26.1 ml/m??? LVOT Cardiac Index 2246.2 cm???/min???m??? AV Area Cont Eq pk 1.7 cm??? MV Peak Velocity 134.1 cm/s MV Peak Gradient 7.2 mmHg MV Mean Velocity 71.3 cm/s MV Mean Gradient 2.5 mmHg MV Velocity Time Integral 35.8 cm Mitral E Point Velocity 122.9 cm/s Mitral A Point Velocity 91.3 cm/s Mitral E to A Ratio 1.3 MV Deceleration Time 127.4 ms MV E' Velocity 7.1 cm/s Mitral E to MV E' Ratio 17.4 TR Peak Velocity 238.2 cm/s TR Peak Gradient 22.7 mmHg Right Ventricular Systolic Press 27.7 mmHg PV Peak Velocity 98.9 cm/s PV Peak Gradient 3.9 mmHg FINDINGS Left Ventricle Normal LV size and wall thickness. Left ventricular ejection fraction is estimated at 30-35 %. Right Ventricle Normal right ventricular size. RVSP= 28mmHg. Right Atrium Normal right atrial size. Left Atrium Moderate left atrial dilatation Mitral Valve Moderate posterior MAC. Trace MR. Aortic Valve Aortic valve not well visualized. No aortic valve stenosis or regurgitation. Tricuspid Valve Structurally normal tricuspid valve. Mild TR. Pulmonic Valve Pulmonic valve not well visualized. No pulmonic regurgitation. Pericardium No effusion Aorta Normal size aortic root and proximal ascending aorta. CONCLUSIONS Technically difficult study. LVEF estimated at 30-35%. Severely reduced global LV systolic function, Suspected inferolateral wall hypokinesia Moderate left atrial dilatation No significant valvular dysfunction No pericardial effusion Previewed by: Dr Harpreet Manning (Electronically Signed) Final Date: 17 March 2023 09:59
[2023-03-17 10:22] LABS: Basophils # (A) 0.1 k/uL (0-0.2); Basophils % (A) 1 %; Eosinophils # (A) 0.4 k/uL (0-0.7); Eosinophils % (A) 3 %; HCT 52.1 % (39.0-53.0); HGB 16.9 gm/dL (13.0-17.5); Lymphocytes # (A) 2.2 k/uL (1.0-4.8); Lymphocytes % (A) 19 %; MCH 28.9 pg (25.0-35.0); MCHC 32.4 g/dL (31.0-37.0); MCV 89.1 fL (80.0-100.0); Mean Platelet Volume 7.7; Monocytes # (A) 0.7 k/uL (0-1.0); Monocytes % (A) 6 %; Neutrophils % (A) 70 %; Platelet Count 205 k/uL (150-450); RBC 5.85 m/uL (4.30-5.90); RDW 13.7 % (11.5-15.5); WBC 11.5 k/uL (3.8-10.6)
[2023-03-17 10:33] LABS: African American GFR (CKD) 75 (>60 ml/min/1.73 sqM); Anion Gap 12 mmol/L; Blood Urea Nitrogen 20 mg/dL (9-20); Calcium 9.3 mg/dL (8.4-10.2); Carbon Dioxide 24 mmol/L (22-30); Chloride 103 mmol/L (98-107); Glucose 171 mg/dL (74-99); Magnesium 2.3 mg/dL (1.6-2.3); Non-African American GFR(CKD) 65 (>60 ml/min/1.73 sqM); Potassium 4.6 mmol/L (3.5-5.1); Sodium 139 mmol/L (137-145)
[2023-03-17] MEDS ORDERED: SPIRONOLACTONE 25 MG TAB PO SCH (10:45)
[2023-03-17] MEDS ORDERED: lisinopriL 5 MG TAB PO SCH (10:45)
[2023-03-17 11:37] LABS: Glucose,Whole Blood 163 mg/dL (70-110)
[2023-03-17 11:54] VITALS: BP 113/65; PULSE 79
--- NOTE | 2023-03-17 12:07 | P.PN ---
Subjective Progress Note Date: 03/17/23 Hospital Course: 77-year-old male with history of asthma, BPH presenting with elevated heart rate. In the ED, temperature was 98.5, pulse 142, blood pressure 170/98, 96% on room air. WBC 9.7, hemoglobin 16.3, bicarb 21, creatinine 0.9, potassium 4.1, magnesium 2, glucose 297, trop neg, TSH 5.02. Chest x-ray independently interpreted, shows no acute process. EKG reported as atrial flutter. Patient being admitted for new onset atrial flutter. On Cardizem drip and heparin drip. Cardiology consulted. Transition to oral Eliquis, and metoprolol. Also found to be new onset type 2 diabetes with A1c of 11.1. Started on oral antidiabetic medications. Had successful NARESH with cardioversion. Echocardiogram showed LVEF 30-35%. Subjective: Seen And examined at bedside. No acute events overnight. Denies any new complaints. Pertinent positives and negatives as discussed above, a complete review of systems was performed and all other systems are negative. Vitals Signs Reviewed. General: nontoxic, no distress, appears at stated age Derm: warm, dry Head: atraumatic, normocephalic, symmetric Eyes: EOMI, no lid lag, anicteric sclera Mouth: no lip lesion, mucus membranes moist Cardiovascular: S1S2 reg, no murmur Lungs: CTA bilateral, no rhonchi, no rales , no accessory muscle use Abdominal: soft, nontender to palpation, no guarding, no appreciable organomegaly Ext: no gross muscle atrophy, no edema, no contractures Neuro: CN II-XI grossly intact, no focal neuro deficits Psych: Alert, oriented, appropriate affect Data Reviewed Today: Pertinent Labs: WBC 11.5, hemoglobin 16.9, potassium 4.6, creatinine 1.08, blood sugars range between 149-171 Imaging: EKG independently interpreted from this morning, shows normal sinus rhythm Assessment and Plan: Patient needs close monitoring, at increased risk for decompensation. 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, EF 30-35% -Cardiology note reviewed, successful NARESH with cardioversion -On metoprolol 25 mg twice a day, and Eliquis 5 mg twice a day -Also started on lisinopril 5 mg daily, and spironolactone 12.5 mg daily -TSH slightly elevated, repeat in 4-6 weeks, free T4 pending New-onset type 2 diabetes with hyperglycemia, A1c 11.1 -Continue farxiga 10 milligrams daily, glimepiride 1 mg daily -We will add metformin at discharge -Also on sliding scale insulin, monitor for hypoglycemia Rhinitis BPH HLD -home meds reviewed and reconciled DVT ppx: Eliquis Code status: Full code Anticipated discharge place: Home Anticipated discharge time: pending clinical course Objective - Vital Signs Vital signs: Vital Signs Temp 97.8 F 03/17/23 09:17 Pulse 79 03/17/23 11:44 Resp 18 03/17/23 11:44 BP 113/65 03/17/23 11:44 Pulse Ox 92 L 03/17/23 11:44 FiO2 Intake & Output 03/16/23 03/17/23 03/17/23 18:59 06:59 18:59 Intake Total 748.333 10 200 Balance 748.333 10 200 Weight 99.79 kg Intake: IV 10 200 0.9 10 Intake, IV Titration 28.333 Amount Diltiazem 125 mg In 28.333 Sodium Chloride 0.9% 100 ml @ 5 MG/HR 5 mls/hr IV .Q24H [facility] Rx#:[id number] Oral 720 0 Other: Voiding Method Toilet Toilet # Voids 2 - Labs CBC & Chem 7: 03/17/23 09:57 03/17/23 09:57 Labs: Abnormal Lab Results - Last 24 Hours (Table) 03/16/23 03/16/23 03/16/23 Range/Units 08:21 16:54 20:21 WBC (3.8-10.6) k/uL Neutrophils # (1.3-7.7) k/uL Glucose (74-99) mg/dL POC Glucose (mg/dL) 156 H 147 H (70-110) mg/dL Triglycerides 185.00 H (0.00-149.00) mg/dL 03/17/23 03/17/23 03/17/23 Range/Units 06:00 09:36 09:57 WBC 11.5 H (3.8-10.6) k/uL Neutrophils # 8.0 H (1.3-7.7) k/uL Glucose (74-99) mg/dL POC Glucose (mg/dL) 149 H 167 H (70-110) mg/dL Triglycerides (0.00-149.00) mg/dL 03/17/23 03/17/23 Range/Units 09:57 11:36 WBC (3.8-10.6) k/uL Neutrophils # (1.3-7.7) k/uL Glucose 171 H (74-99) mg/dL POC Glucose (mg/dL) 163 H (70-110) mg/dL Triglycerides (0.00-149.00) mg/dL
--- NOTE | 2023-03-17 13:05 | P.PN ---
Subjective HISTORY OF PRESENT ILLNESS: This is a 77-year-old male with a past medical history significant for hyperlipidemia, valvular heart disease, and former nicotine dependence. Patient follows in the office with Dr. Celestin. We have been asked to see the patient in consultation for atrial flutter. Patient examined at the bedside. The patient states he was checking his heart rate yesterday and noticed it to be fast. He denies any palpations, chest pain or pressure, or shortness of breath. Denies history of CVA/TIA. The patient was found to be in a flutter with RVR. He was started on IV heparin and IV Cardizem. At the time of examination he remains in atrial flutter with controlled ventricular rate. * EKG reveals atrial flutter with 2:1 conduction * Chest xray negative for acute process * Laboratory data: Troponin negative 3. TSH 5.020. Free T4 1 0.25. Hemoglobin A1c 11.1. * Current home cardiac medications include Lipitor 20 mg daily * Most recent echocardiogram obtained in April 2022 revealed normal ejection fraction, [id number] MR * Patient underwent Lexiscan stress test in April 2022 which was negative for ischemia 03/17/2023 Patient examined this morning at the bedside. Patient is status post NARESH and cardioversion with Dr. Celestin. Patient was also found to have an ejection fr action of 20% on NARESH. Patient denies chest pain or pressure. He denies shortness of breath. Vital signs are stable. PHYSICAL EXAM: VITAL SIGNS: Reviewed. GENERAL: Well-developed in no acute distress. HEENT: Head is normocephalic. Pupils are equal, round. Sclerae anicteric. Mucous membranes of the mouth are moist. Neck supple. No JVD or thyromegaly LUNGS: Respirations even and unlabored. Lungs essentially clear to auscultation bilaterally. HEART: Regular rate and rhythm. S1 and S2 heard. Systolic murmur noted ABDOMEN: Soft. Nondistended. Nontender. EXTREMITIES: Normal range of motion. No clubbing or cyanosis. Peripheral pulses intact. No lower extremity edema NEUROLOGIC: Awake and alert. Oriented x 3. ASSESSMENT: New onset typical atrial flutter with RVR New-onset cardiomyopathy, ischemic versus nonischemic, EF 20% New-onset diabetes, hemoglobin A1c 11.1% Valvular heart disease Hyperlipidemia Former nicotine dependence PLAN: Continue current cardiac medications Patient has been started on cardiomyopathy regimen Patient may be discharged home today from a cardiac standpoint and follow up in the office Nurse practitioner note has been reviewed by physician. Signing provider agrees with the documented findings, assessment, and plan of care. Objective - Vital Signs Vital signs: Vital Signs Temp 97.8 F 03/17/23 09:17 Pulse 79 03/17/23 11:44 Resp 18 03/17/23 11:44 BP 113/65 03/17/23 11:44 Pulse Ox 92 L 03/17/23 11:44 FiO2 Intake & Output 03/16/23 03/17/23 03/17/23 18:59 06:59 18:59 Intake Total 748.333 10 436 Balance 748.333 10 436 Weight 99.79 kg Intake: IV 10 200 0.9 10 Intake, IV Titration 28.333 Amount Diltiazem 125 mg In 28.333 Sodium Chloride 0.9% 100 ml @ 5 MG/HR 5 mls/hr IV .Q24H DEEPA Rx#:[id number] Oral 720 0 236 Other: Voiding Method Toilet Toilet # Voids 2 - Labs CBC & Chem 7: 03/17/23 09:57 03/17/23 09:57 Labs: Abnormal Lab Results - Last 24 Hours (Table) 03/16/23 03/16/23 03/16/23 Range/Units 08:21 16:54 20:21 WBC (3.8-10.6) k/uL Neutrophils # (1.3-7.7) k/uL Glucose (74-99) mg/dL POC Glucose (mg/dL) 156 H 147 H (70-110) mg/dL Triglycerides 185.00 H (0.00-149.00) mg/dL 03/17/23 03/17/23 03/17/23 Range/Units 06:00 09:36 09:57 WBC 11.5 H (3.8-10.6) k/uL Neutrophils # 8.0 H (1.3-7.7) k/uL Glucose (74-99) mg/dL POC Glucose (mg/dL) 149 H 167 H (70-110) mg/dL Triglycerides (0.00-149.00) mg/dL 03/17/23 03/17/23 Range/Units 09:57 11:36 WBC (3.8-10.6) k/uL Neutrophils # (1.3-7.7) k/uL Glucose 171 H (74-99) mg/dL POC Glucose (mg/dL) 163 H (70-110) mg/dL Triglycerides (0.00-149.00) mg/dL
--- NOTE | 2023-03-17 13:14 | P.DS ---
Providers Date of admission: 03/15/23 15:53 Expected date of discharge: 03/17/23 Attending physician: Trice Nova DO Consults: 03/15/23 15:52 Consult Physician Urgent Consulting Provider: [facility] Consult Reason/Comments: Atrial flutter with rapid ventricular response Do you want consulting provider notified?: Yes Primary care physician: Eran Padron Hospital Course: Discharge Diagnosis: 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, EF 30-35% New-onset type 2 diabetes with hyperglycemia, A1c 11.1 Rhinitis BPH HLD Hospital Course: 77-year-old male with history of asthma, BPH presenting with elevated heart rate. In the ED, temperature was 98.5, pulse 142, blood pressure 170/98, 96% on room air. WBC 9.7, hemoglobin 16.3, bicarb 21, creatinine 0.9, potassium 4.1, magnesium 2, glucose 297, trop neg, TSH 5.02. Chest x-ray independently interpreted, shows no acute process. EKG reported as atrial flutter. Patient being admitted for new onset atrial flutter. On Cardizem drip and heparin drip. Cardiology consulted. Transition to oral Eliquis, and metoprolol. Also found to be new onset type 2 diabetes with A1c of 11.1. Started on oral antidiabetic medications. Had successful NARESH with cardioversion. Echocardiogram showed LVEF 30-35%. Started on guideline directed medical therapy. Follow-up with cardiology outpatient to evaluate for ischemic versus nonischemic cardiomyopathy. Patient seen and examined at bedside. Vital signs reviewed and stable. General: nontoxic, no distress, appears at stated age Derm: warm, dry Head: atraumatic, normocephalic, symmetric Eyes: EOMI, no lid lag, anicteric sclera Mouth: no lip lesion, mucus membranes moist Cardiovascular: S1S2 reg, no murmur Lungs: CTA bilateral, no rhonchi, no rales , no accessory muscle use Abdominal: soft, nontender to palpation, no guarding, no appreciable organomegaly Ext: no gross muscle atrophy, no edema, no contractures Neuro: CN II-XI grossly intact, no focal neuro deficits Psych: Alert, oriented, appropriate affect A total of 33 minutes of time were spent preparing this complex discharge summary. Patient was discharged on 03/17/23 at 1309. Patient Condition at Discharge: Stable Plan - Discharge Summary Discharge Rx Participant: No New Discharge Prescriptions: New Glimepiride [Amaryl] 1 mg PO -BRKFST #90 tab metFORMIN HCL ER [Glucophage XR] 500 mg PO BID #90 tab Metoprolol Tartrate [Lopressor] 25 mg PO BID #90 tab lisinopriL [Zestril] 5 mg PO DAILY #90 tab Spironolactone [Aldactone] 12.5 mg PO DAILY #90 tab Apixaban [Eliquis] 5 mg PO BID #90 tab Dapagliflozin Propanediol [Farxiga] 10 mg PO DAILY #90 tab Continue Mometasone Furoate [Nasonex 50 mcg Nasal [place]] 1 - 2 spr EA NOSTRIL DAILY Montelukast [Singulair] 10 mg PO DAILY Tamsulosin [Flomax] 0.4 mg PO BID Vitamin D3(Unknown Dose) 1 tab PO DAILY Atorvastatin [Lipitor] 20 mg PO DAILY Finasteride [Proscar] 5 mg PO DAILY Discharge Medication List Mometasone Furoate [Nasonex 50 mcg Nasal [place]] 1 - 2 spr EA NOSTRIL DAILY 05/12/14 [History] Montelukast [Singulair] 10 mg PO DAILY 05/12/14 [History] Tamsulosin [Flomax] 0.4 mg PO BID 04/27/18 [History] Atorvastatin [Lipitor] 20 mg PO DAILY 03/15/23 [History] Finasteride [Proscar] 5 mg PO DAILY 03/15/23 [History] Vitamin D3(Unknown Dose) 1 tab PO DAILY 03/15/23 [History] Apixaban [Eliquis] 5 mg PO BID #90 tab 03/17/23 [Rx] Dapagliflozin Propanediol [Farxiga] 10 mg PO DAILY #90 tab 03/17/23 [Rx] Glimepiride [Amaryl] 1 mg PO -BRKFST #90 tab 03/17/23 [Rx] Metoprolol Tartrate [Lopressor] 25 mg PO BID #90 tab 03/17/23 [Rx] Spironolactone [Aldactone] 12.5 mg PO DAILY #90 tab 03/17/23 [Rx] lisinopriL [Zestril] 5 mg PO DAILY #90 tab 03/17/23 [Rx] metFORMIN HCL ER [Glucophage XR] 500 mg PO BID #90 tab 03/17/23 [Rx] Follow up Appointment(s)/Referral(s): Jacob Celestin MD [STAFF PHYSICIAN] - 1 Week Pawel Kevin PAC [REFERRING] - 1-2 days Patient Instructions/Handouts: Glimepiride (By mouth), Dapagliflozin (By mouth), Safe Use of Anticoagulants (DC), Type 2 Diabetes Management for Adults (DC), Diabetes and Nutrition (DC) Activity/Diet/Wound Care/Special Instructions: [facility] have sent to room or lease picker from pharmacy prior to discharge - $0 copay Discharge Disposition: HOME SELF-CARE
[2023-03-18] MEDS ORDERED: SPIRONOLACTONE 25 MG TAB PO SCH (09:00)
== END 2023-03-17 14:42 | disposition home or self-care (01) | DRG 310 ==
LOC: EC 13:07 → 3SCARD 15:53
PROVIDERS: ADMIT Internal Medicine; ATTEND Internal Medicine
PROC: B24BZZ4 Ultrasonography of Heart with Aorta, Transesophageal (ICD-10-PCS; 2023-03-17)
PROC: 5A2204Z Restoration of Cardiac Rhythm, Single (ICD-10-PCS; principal; 2023-03-17 07:30)
DX: I48.3 Typical atrial flutter (principal); I25.5 Ischemic cardiomyopathy; I45.89 Other specified conduction disorders; J45.909 Unspecified asthma, uncomplicated; I42.8 Other cardiomyopathies; I48.91 Unspecified atrial fibrillation; J31.0 Chronic rhinitis; N40.0 Benign prostatic hyperplasia without lower urinary tract symptoms; E11.65 Type 2 diabetes mellitus with hyperglycemia; Z79.899 Other long term (current) drug therapy; Z86.010 Personal history of colon polyps; Z87.891 Personal history of nicotine dependence; E78.5 Hyperlipidemia, unspecified
CPT/HCPCS: 36415; 71046; 80048; 80053; 80061; 83036; 83735; 84439; 84443; 84484; 85025; 85610; 85730; 92960; 93005; 93306; 93312; 93320; 93325; 94760; 96365; 96366; 96368; 96375; 99291

== ENCOUNTER → 2023-04-18 | Outpatient (CLI) | payer MEDICARE ==
[2023-04-18 14:53] LABS: HCT 50.2 % (39.6-50.0); HGB 15.8 g/dL (13.0-17.0); MCH 28.1 pg (27.0-32.0); MCHC 31.5 g/dL (32.0-37.0); MCV 89.3 FL (80.0-97.0); Mean Platelet Volume 11.1 FL (9.5-12.2); NRBC Per 100 WBC 0 X 10*3/uL (0.00-0.01); Platelet Count 238 X 10*3/uL (140-440); RBC 5.62 X 10*6/uL (4.40-5.60); RDW 13.7 % (11.5-14.5)
[2023-04-18 15:25] LABS: Blood Urea Nitrogen 24.1 mg/dL (9.0-27.0); Carbon Dioxide 22.1 mmol/L (21.6-31.8); Chloride 102 mmol/L (96-109); Potassium 5.3 mmol/L (3.5-5.5); Sodium 138 mmol/L (135-145)
== END | disposition home or self-care (01) ==
LOC: LABPAT 10:34
PROVIDERS: ATTEND Internal Medicine Interventional Cardiology
DX: Z01.812 Encounter for preprocedural laboratory examination (principal); R06.02 Shortness of breath
CPT/HCPCS: 80051; 82565; 84520; 85027

== ENCOUNTER 2023-04-25 08:28 | Day surgery (SDC) | payer MEDICARE ==
[2023-04-18 14:12] VITALS: BMI 30.1
[~2023-04-25 08:28] MED LIST changes: +ALPRAZolam 0.25 MG TAB PO PRN; +ALPRAZolam 0.5 MG TAB PO PRN; +ASPIRIN 325 MG TAB PO STA; -LACTATED RINGERS 1,000 ML IV SCH; -LIDOCAINE 1% 20 ML VIAL (10MG/ML) FOR IV START INTRADERMA PRN; +NITROGLYCERIN SL TABS 0.4 MG TAB SUBLINGUAL PRN
[2023-04-25] MEDS ORDERED: SODIUM CHLORIDE 0.9% 1,000 ML IV ONE (09:05)
[2023-04-25] MEDS: SODIUM CHLORIDE 0.9% 1,000 ML in EMPTY BAG 1 BAG IV SCH ×3 (09:10→20:22)
[2023-04-25 09:14] LABS: Glucose,Whole Blood 116 mg/dL (70-110)
[2023-04-25] MEDS ORDERED: VERAPAMIL 2.5 MG/ML 2 ML AMP ONE (10:27)
[2023-04-25] MEDS ORDERED: fentaNYL (PF) 50 MCG/ML 2 ML AMP ONE (10:27)
[2023-04-25] MEDS ORDERED: HEPARIN SODIUM 1,000 UN/ML (10ML VL) ONE (10:29)
[2023-04-25] MEDS ORDERED: LIDOCAINE 1% INJ 10MG/ML (20 ML MDV) SQ ONE (10:42)
[2023-04-25] MEDS ORDERED: VERAPAMIL SYRINGE (5 MG/10 ML) INTRAARTER ONE (10:43)
[2023-04-25] MEDS ORDERED: fentaNYL (PF) 50 MCG/ML 2 ML AMP IVP ONE (10:44)
[2023-04-25] MEDS ORDERED: MIDAZOLAM 2 MG/2 ML VIAL IVP ONE (10:44)
[2023-04-25] MEDS ORDERED: HEPARIN SODIUM 1,000 UN/ML (10ML VL) IVP ONE (10:45)
[2023-04-25] MEDS ORDERED: CLOPIDOGREL 75 MG TAB ONE (11:06)
[2023-04-25] MEDS ORDERED: IOPAMIDOL-370 100ML BTL INJ ONE (11:07)
[2023-04-25] MEDS ORDERED: CLOPIDOGREL 75 MG TAB PO ONE (11:08)
[2023-04-25] MEDS ORDERED: IOPAMIDOL-370 100ML BTL IVP ONE (11:27)
[2023-04-25] MEDS ORDERED: RX INFO: IV CONTRAST WAS GIVEN 1 EACH MISC MISCELLANE PRN (11:45)
[2023-04-25] MEDS ORDERED: ATROPINE SULFATE 0.1 MG/ML 10ML SYRINGE IV PRN (11:45)
[2023-04-25] MEDS ORDERED: MAG HYDROX/AL HYDROX/SIMETH 30 ML CUP PO PRN (11:45)
[2023-04-25] MEDS ORDERED: ZOLPIDEM 5 MG TAB PO PRN (11:45)
[2023-04-25] MEDS ORDERED: SODIUM CHLORIDE 0.9% 1,000 ML in EMPTY BAG 1 BAG IV SCH (11:45)
[2023-04-25] MEDS ORDERED: NITROGLYCERIN SL TABS 0.4 MG TAB SUBLINGUAL PRN (11:45)
--- NOTE | 2023-04-25 11:51 | P.PCN ---
Date of Procedure: 04/25/23 Operative Findings: CARDIAC CATHETERIZATION AND PERCUTANEOUS CORONARY INTERVENTION PERFORMING PHYSICIAN: Jacob Celestin MD, [facility] PROCEDURE PERFORMED: 1. Selective right and left coronary angiogram 2. Left heart catheterization 3. Successful stenting of mid LAD using 4.0 x 18 mm Xience ANDREIA with an excellent angiographic results 4. Adjunctive use of Doppler wire and intravascular imaging INDICATION: Cardiomyopathy COMPLICATION: None APPROACH: Right radial artery LEVEL OF SEDATION: Moderate with the sedation time off 35 minutes PROCEDURE DESCRIPTION: After obtaining an informed consent the patient was brought to the cardiac central lab technician. The right radial artery was cannulated using puncture technique under ultrasound guidance the micropuncture wire passed easily then I placed a 6- Sinhala sheath at the right radial artery with a give the patient 2 mg of verapamil intra-arterial and 5000 as of heparin intravenous with continuous ACT monitoring. Selective right and left coronary angiogram performed using JR4 and JL 3.5 catheters. Left heart catheterization was performed using a pigtail catheter. After that we did an FFR of the LAD and subsequently intervening on the LAD. The procedure was completed was no complication. SELECTIVE CORONARY ANGIOGRAM: The right coronary artery: Large caliber vessel and a dominant vessel was mild disease in the midportion Left main: Is angiographically normal The left circumflex: Large caliber vessel nondominant vessel appears to have mild disease only and gives rises into 4 obtuse marginal branches The left anterior descending artery: Large caliber vessel. The proximal to mid LAD has a hazy lesion appeared to be in the range of 50-60%. It did a Doppler measurement with iFR and that came in to be ischemic and 0.88. HEMODYNAMICS: The LVEDP was 10 mmHg was no significant gradient across aortic valve PCI OF THE LAD: Initially with 0 to the Doppler wire and subsequently equalized between the Doppler wire and guiding catheter which was JL 3.5 guiding catheter. Subsequently the left main was engaged and the LAD was wired. Subsequently we did iFR and that came in to be ischemic and 0.88. Subsequently intravascular ultrasound was performed and showed a diameter around 4 mm. Predilatation was performed using 3 mm noncompliant balloon before I deployed 4.0 x 18 mm stent which was deployed under 14 mitzy. And the rescue ultrasound performed again and showed that the stent was not well expanded. I post as a distant using 4 m noncompliant balloon. Was final angiogram and final and intravascular imaging showed good results and the procedure was completed was no complication CONCLUSION: Severe disease involving the mid LAD. I did perform successful stenting of the mid LAD Mild disease involving the right coronary artery Normal left sided filling pressure POSTPROCEDURE MANAGEMENT: 1. Dual antiplatelet therapy using aspirin and Plavix for 6 month 2. Aggressive cholesterol control 3. Follow-up with the patient
[2023-04-25 17:10] LABS: Glucose,Whole Blood 103 mg/dL (70-110)
[2023-04-25] MEDS: TAMSULOSIN 0.4 MG CAP.ER.24H PO SCH (20:20)
[2023-04-25] MEDS: METOPROLOL TARTRATE 25 MG TAB PO SCH (20:20)
[2023-04-26 06:13] LABS: Glucose,Whole Blood 104 mg/dL (70-110)
[2023-04-26 06:58] LABS: African American GFR (CKD) 87 (>60 ml/min/1.73 sqM); Non-African American GFR(CKD) 75 (>60 ml/min/1.73 sqM)
[2023-04-26] MEDS ORDERED: GLIMEPIRIDE 1 MG TAB PO SCH (07:30)
[2023-04-26 08:38] VITALS: BP 129/78; PULSE 61; RESP 18; TEMP 97.2
[2023-04-26] MEDS: TAMSULOSIN 0.4 MG CAP.ER.24H PO SCH (08:51)
[2023-04-26] MEDS ORDERED: SPIRONOLACTONE 25 MG TAB PO SCH (09:00)
[2023-04-26] MEDS ORDERED: MONTELUKAST 10 MG TAB PO SCH (09:00)
[2023-04-26] MEDS ORDERED: CHOLECALCIFEROL 25 MCG (1000 IU) TABLET PO SCH (09:00)
[2023-04-26] MEDS ORDERED: CLOPIDOGREL 75 MG TAB PO SCH (09:00)
[2023-04-26] MEDS ORDERED: ATORVASTATIN 20 MG TAB PO SCH (09:00)
[2023-04-26] MEDS ORDERED: DAPAGLIFLOZIN PROPANEDIOL 10 MG TABLET PO SCH (09:00)
[2023-04-26] MEDS ORDERED: lisinopriL 5 MG TAB PO SCH (09:00)
[2023-04-26] MEDS ORDERED: FINASTERIDE 5 MG TAB PO SCH (09:00)
[2023-04-26] MEDS: METOPROLOL TARTRATE 25 MG TAB PO SCH (09:21)
--- NOTE | 2023-04-26 09:57 | P.DS ---
Providers Attending physician: Jacob Celestin Consults: 04/25/23 11:45 Consult Physician Routine Consulting Provider: [facility] Consult Reason/Comments: Post Interventional patient Do you want consulting provider notified?: Already Contacted Primary care physician: Ori Barnard [facility] Hospital Course: The patient is a pleasant 77-year-old gentleman who underwent yesterday a heart catheterization and stenting of the left anterior descending artery The patient tolerated the procedure very well. He was seen and evaluated this morning. He is asymptomatic and he is hemodynamically stable. The procedure was performed from the right radial artery. The right radial artery is soft and nontender with no bruises and no hematomas noted. The patient is going to be discharged on dual antiplatelet therapy along with low dose of Eliquis. The physical examination overall is unremarkable with stable vital signs We will follow-up with the patient next week in the office Plan - Discharge Summary Discharge Rx Participant: Yes New Discharge Prescriptions: New Aspirin EC [Ecotrin Low Dose] 81 mg PO DAILY #30 tab Nitroglycerin Sl Tabs [Nitrostat] 0.4 mg SUBLINGUAL Q5M PRN #25 tab PRN Reason: Chest Pain Clopidogrel [Plavix] 75 mg PO DAILY #90 tab Continue Mometasone Furoate [Nasonex 50 mcg Nasal [place]] 1 - 2 spr EA NOSTRIL DAILY Montelukast [Singulair] 10 mg PO DAILY Tamsulosin [Flomax] 0.4 mg PO BID Atorvastatin [Lipitor] 20 mg PO DAILY Glimepiride [Amaryl] 1 mg PO AC-BRKFST #90 tab metFORMIN HCL ER [Glucophage XR] 500 mg PO BID #90 tab lisinopriL [Zestril] 5 mg PO DAILY #90 tab Cholecalciferol [Vitamin D3 (25 Mcg = 1000 Iu)] 50 mcg PO DAILY Finasteride [Proscar] 5 mg PO DAILY Spironolactone [Aldactone] 12.5 mg PO DAILY #90 tab Dapagliflozin Propanediol [Farxiga] 10 mg PO DAILY #90 tab Changed Apixaban [Eliquis] 2.5 mg PO BID #90 tab Metoprolol Tartrate [Lopressor] 12.5 mg PO BID #90 tab Discharge Medication List Mometasone Furoate [Nasonex 50 mcg Nasal [place]] 1 - 2 spr EA NOSTRIL DAILY 02/09/15 [History] Montelukast [Singulair] 10 mg PO DAILY 05/12/14 [History] Tamsulosin [Flomax] 0.4 mg PO BID 04/27/18 [History] Atorvastatin [Lipitor] 20 mg PO DAILY 03/15/23 [History] Finasteride [Proscar] 5 mg PO DAILY 03/15/23 [History] Dapagliflozin Propanediol [Farxiga] 10 mg PO DAILY #90 tab 03/17/23 [Rx] Glimepiride [Amaryl] 1 mg PO AC-BRKFST #90 tab 03/17/23 [Rx] Spironolactone [Aldactone] 12.5 mg PO DAILY #90 tab 03/17/23 [Rx] lisinopriL [Zestril] 5 mg PO DAILY #90 tab 03/17/23 [Rx] metFORMIN HCL ER [Glucophage XR] 500 mg PO BID #90 tab 03/17/23 [Rx] Cholecalciferol [Vitamin D3 (25 Mcg = 1000 Iu)] 50 mcg PO DAILY 04/18/23 [History] Apixaban [Eliquis] 2.5 mg PO BID #90 tab 04/26/23 [Rx] Aspirin EC [Ecotrin Low Dose] 81 mg PO DAILY #30 tab 04/26/23 [Rx] Clopidogrel [Plavix] 75 mg PO DAILY #90 tab 04/26/23 [Rx] Metoprolol Tartrate [Lopressor] 12.5 mg PO BID #90 tab 04/26/23 [Rx] Nitroglycerin Sl Tabs [Nitrostat] 0.4 mg SUBLINGUAL Q5M PRN #25 tab 04/26/23 [Rx] Follow up Appointment(s)/Referral(s): Jacob Celestin MD [STAFF PHYSICIAN] - 1 Week (THE OFFICE WILL CALL YOU WITH AN APPOINTMENT DATE AND TIME) Patient Instructions/Handouts: Moderate Sedation (DC), After Radial Heart Catheterization (GEN) Activity/Diet/Wound Care/Special Instructions: *NO LIFTING, PUSHING, OR PULLING ANYTHING OVER 5 POUNDS FOR 5 DAYS *NO DRIVING FOR 3 DAYS *YOU CAN REMOVE YOUR DRESSING TOMORROW BUT DO NOT SUBMERSE YOUR PUNCTURE SITE IN WATER FOR A FEW DAYS TO PREVENT INFECTION - SO NO TUB BATHS, POOLS, HOT TUBS, DISHES...ETC *ANY SIGNS OF BLEEDING (HARDNESS, SWELLING, OR EXCESSIVE BRUISING) HOLD DIRECT PRESSURE ON YOUR PUNCTURE SITE AND COME TO THE NEAREST EMERGENCY ROOM TO GET YOUR PUNCTURE SITE LOOKED AT - DO NOT DRIVE YOURSELF! EITHER CALL EMS OR HAVE SOMEONE DRIVE YOU!
[2023-04-27] MEDS ORDERED: metFORMIN 500 MG TAB PO SCH (07:30)
== END 2023-04-26 10:27 | disposition home or self-care (01) ==
LOC: CATHCVL 08:28 → 6NMEDSUR 11:14 → CATHCVL 04-26 10:27
PROVIDERS: ATTEND Internal Medicine Interventional Cardiology
DX: I25.10 Atherosclerotic heart disease of native coronary artery without angina pectoris (principal); I42.9 Cardiomyopathy, unspecified; I10 Essential (primary) hypertension; E78.5 Hyperlipidemia, unspecified; E11.9 Type 2 diabetes mellitus without complications; F17.210 Nicotine dependence, cigarettes, uncomplicated; I38 Endocarditis, valve unspecified; E66.3 Overweight; Z79.899 Other long term (current) drug therapy
CPT/HCPCS: 92978; 93458; 93799; 76937; 82565; C9600; S0138; J2250; J2001; J3010; J1644; Q9967

== ENCOUNTER → 2024-01-15 | Outpatient (CLI) | payer MEDICARE ==
[2024-01-15 11:45] LABS: African American GFR (CKD) 87 (>60 ml/min/1.73 sqM); Blood Urea Nitrogen 22 mg/dL (9-20); Non-African American GFR(CKD) 75 (>60 ml/min/1.73 sqM)
--- NOTE | 2024-01-15 15:51 | CT ---
EXAMINATION TYPE: CT urogram wo/w con CT DLP: 1788.60 mGycm, Automated exposure control for dose reduction was used. DATE OF EXAM: 01/15/2024 12:47 PM COMPARISON: None CLINICAL INDICATION:Male, 78 years old with history of R31.0 GROSS HEMATURIA; PHH, HEMATURIA TECHNIQUE: Urogram of the abdomen and pelvis was performed before and after the administration of 100 cc of IV c ontrast Isovue 300 contrast. Delayed imaging was performed. Coronal and sagittal reformats were perfo rmed. One or more CT dose reduction strategies were utilized during this examination. 2D and 3D recon structions are performed to assist visualization of the urinary tract on a separate workstation. FINDINGS: GENITOURINARY: RIGHT KIDNEY AND URETER: No calculi. No hydronephrosis or hydroureter. Exophytic lateral mid right ki dney nonenhancing 2.4 cm cyst. Additional subcentimeter renal cyst. No urothelial lesions: no filling defect, dilation, stricture or wall thickening. LEFT KIDNEY AND URETER: No calculi. No hydronephrosis or hydroureter. Left inferior pole cortical non enhancing 1 cm cyst. No urothelial lesions: no filling defect, dilation, stricture or wall thickening . URINARY BLADDER: Multiple layering calculi within the urinary bladder on the left and mid line. Coupl e of calcifications identified along the anterior nondependent wall of the urinary bladder (series 4, image 121). Right upper urinary bladder exophytic peripherally calcified lesion measuring 2.2 cm (se aimee 4, image 117 and series 10, image 69). REPRODUCTIVE: Enlarged prostate gland measuring 5.9 cm in transverse dimension. This indents upon the urinary bladder base. Central prostate calcifications. ABDOMEN LIVER: Unremarkable. GALLBLADDER AND BILE DUCTS: Unremarkable PANCREAS: Unremarkable. SPLEEN: Unremarkable. ADRENAL GLANDS: Unremarkable. STOMACH AND BOWEL: Distal colonic diverticulosis without evidence for acute diverticulitis.. No evide nce of bowel obstruction. PERITONEUM: No evidence of pneumoperitoneum, free fluid, or adenopathy. VASCULATURE: Atherosclerotic calcifications are present throughout the abdominal aorta and its branch es. No abdominal aortic aneurysm. MUSCULOSKELETAL: No acute osseous abnormalities. Moderate osteoarthritic changes of the right hip. De generative changes of the bilateral SI joints with left anterior bridging. Multilevel degenerative ch anges of the visualized spine. Mild retrolisthesis of L1 on L2 and L2 on L3. SOFT TISSUE/ABDOMINAL WALL: Fat filled supraumbilical hernia. Fat filled bilateral inguinal hernias. LOWER CHEST: Minimal dependent bilateral lower lobes subsegmental atelectasis. Aortic valvular calcif ications. Coronary artery calcifications. IMPRESSION: 1. Urinary bladder 2.2 cm calcified soft tissue mass highly concerning for primary malignancy such a s transitional cell carcinoma. Direct visualization is recommended. 2. Multiple calculi identified within the urinary bladder with 2 identified within the anterior nond ependent wall which may represent adherent calculi versus other etiologies such as malignancy. Recomm endation for #1. 3. No renal calculi or suspicious enhancing renal mass. Bilateral renal cysts. 4. Colonic diverticulosis. 5. Supraumbilical fat filled hernia with bilateral fat filled inguinal hernias. 6. Prostatomegaly. [facility], , 01/15/2024 3:49 PM
== END ==
LOC: RADCTMAIN 10:56
PROVIDERS: ATTEND Urology
DX: R31.0 Gross hematuria
CPT/HCPCS: 36415; 74178; 74400; 82565; 84520